=== PATIENT | male | born 1970 | race Caucasian/White ===

== ENCOUNTER 2017-09-07 10:57 | Emergency (ER) | payer BC, OTHER ==
[~2017-09-07 10:57] MED LIST: AUG875 PO; GUAI1CAP92 PO; IBU800 PO; INDO-1 PO; LEVO100T95 PO; LOR5 PO; LOR75 PO; P EP PO
[2017-09-07] MEDS ORDERED: ALLO-119 PO (11:02)
--- NOTE | 2017-09-07 11:04 | ER Report ---
History and Physical Time Seen By MD: 11:04 HPI/ROSALIND CHIEF COMPLAINT: Chest pain HISTORY OF PRESENT ILLNESS: This is a 47-year-old male who presents to the emergency department for chest pain. 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 Patient states that then yesterday he had some dyspnea with some mild anterior chest pain and then today having some dyspnea with left-sided anterior chest discomfort as he describes it, patient states he became a little bit anxious decided to come into the emergency department for further evaluation. Patient states that he does have a family history of heart disease his father has 4 stents however he is relatively healthy, very active. Patient denies any recent travel outside the region no long flights or long car rides other than to [place]. No recent trauma. Did have asthma as a child. No aches or chills, nausea or vomiting, no headaches or rashes. REVIEW OF SYSTEMS: Constitutional: No fever, no chills. Eyes: No discharge. ENT: No sore throat. Cardiovascular: As above. Respiratory: As above. Gastrointestinal: No abdominal pain, no vomiting. Genitourinary: No hematuria. Musculoskeletal: No back pain. Skin: No rashes. Neurological: No headache. Allergies: Coded Allergies: No Known Drug Allergies (Unverified , 01/03/13) Home Meds Active Scripts Albuterol Sulfate (VENTOLIN HFA) 18 Gm Inh, 2 PUFF INH Q4-6H Y for SHORTNESS OF BREATH, #1 INH Prov:EMILE WILKINS Michael [employer] 09/07/17 Reported Medications Allopurinol (ZYLOPRIM) 300 Mg Tablet, 300 MG PO QDAY, TAB 09/07/17 Indomethacin (INDOMETHACIN) Unknown Strength Capsule, PO, CAPSULE 11/30/14 Levothyroxine Sodium (Synthroid) 100 Mcg Tablet, 125 MCG PO QDAY, 0 Refills 01/25/10 Past Medical/Surgical History The patient has a past medical and surgical history of childhood asthma, gout, removal of cyst. Reviewed Nurses Notes: Yes Hx Smoking: No Smoking Status: Never Smoker Hx Substance Use Disorder: No Hx Alcohol Use: Yes (OCC) Constitutional Vital Sign - Last 24 Hours 09/07/17 09/07/17 09/07/17 09/07/17 11:02 11:02 11:27 11:30 Temp 98.2 Pulse 63 67 Resp 14 23 B/P (MAP) 142/82 142/82 (102) 130/76 (94) Pulse Ox 95 93 O2 Delivery Room Air 09/07/17 09/07/17 09/07/17 09/07/17 11:42 11:57 12:00 12:12 Pulse 72 72 61 Resp 14 22 13 B/P (MAP) 133/80 (97) Pulse Ox 93 95 94 09/07/17 09/07/17 09/07/17 09/07/17 12:27 12:30 12:42 12:47 Pulse 55 58 58 Resp 14 21 B/P (MAP) 137/94 (108) Pulse Ox 93 93 09/07/17 09/07/17 09/07/17 09/07/17 13:00 13:02 13:17 13:30 Pulse 55 47 Resp 13 20 B/P (MAP) 116/87 (97) 110/83 (92) Pulse Ox 94 94 09/07/17 09/07/17 09/07/17 13:32 13:37 13:42 Pulse 50 49 Resp 24 21 16 B/P (MAP) 118/96 (103) Pulse Ox 96 94 93 Physical Exam General Appearance: The patient is alert, has no immediate need for airway protection and no signs of toxicity. Eyes: Pupils equal and round no pallor or injection. ENT, Mouth: Mucous membranes are moist. Respiratory: There are no retractions, lungs are clear to auscultation. Cardiovascular: Regular rate and rhythm, no murmurs, clicks or rubs. Gastrointestinal: Abdomen is soft and non tender, no masses, bowel sounds normal. Neurological: Alert and oriented 4. Moving all extremities. Following all commands. No focal neuro deficits. Skin: Warm and dry, no rashes. Musculoskeletal: Neck is supple non tender. Extremities are nontender, nonswollen and have full range of motion. DIFFERENTIAL DIAGNOSIS: After history and physical exam differential diagnosis was considered for shortness of breath including but not limited to pulmonary infectious process, COPD, asthma, myocardial infarction, pulmonary embolus and congestive heart failure. Medical Decision Making Data Points Result Diagram: 09/07/17 1108 09/07/17 1108 Laboratory Hematology Test 09/07/17 11:08 09/07/17 13:06 Red Blood Count 5.25 M/uL (4.00-5.60) Mean Corpuscular Volume 86.5 fL (80.0-96.0) Mean Corpuscular Hemoglobin 30.1 pg (26.0-33.0) Mean Corpuscular Hemoglobin Concent 34.9 g/dL (32.0-36.0) Red Cell Distribution Width 13.6 % (11.5-14.5) Mean Platelet Volume 8.2 fL (7.2-11.1) Neutrophils (%) (Auto) 51.4 % (39.4-72.5) Lymphocytes (%) (Auto) 40.8 % (17.6-49.6) Monocytes (%) (Auto) 4.7 % (4.1-12.4) Eosinophils (%) (Auto) 2.4 % (0.4-6.7) Basophils (%) (Auto) 0.7 % (0.3-1.4) Nucleated RBC Relative Count (auto) 0.1 /100WBC Neutrophils # (Auto) 3.1 K/uL (2.0-7.4) Lymphocytes # (Auto) 2.4 K/uL (1.3-3.6) Monocytes # (Auto) 0.3 K/uL (0.3-1.0) Eosinophils # (Auto) 0.1 K/uL (0.0-0.5) Basophils # (Auto) 0.0 K/uL (0.0-0.1) Nucleated RBC Absolute Count (auto) 0.01 K/uL D-Dimer Quantitative (PE/DVT) < 0.27 ug/ml (0-0.50) Sodium Level 139 mmol/L (137-145) Potassium Level 3.6 mmol/L (3.5-5.0) Chloride Level 101 mmol/L (98-107) Carbon Dioxide Level 26 mmol/L (22-30) Blood Urea Nitrogen 13 mg/dl (9-21) Creatinine 1.00 mg/dl (0.66-1.25) Glomerular Filtration Rate Calc > 60.0 Random Glucose 112 mg/dl (75-110) Calcium Level 9.7 mg/dl (8.4-10.2) Total Bilirubin 0.6 mg/dl (0.2-1.3) Aspartate Amino Transf (AST/SGOT) 29 U/L (0-35) Alanine Aminotransferase (ALT/SGPT) 36 U/L (0-56) Alkaline Phosphatase 74 U/L (0-126) Total Protein 7.6 gm/dl (6.3-8.2) Albumin 4.2 g/dl (3.5-5.0) Troponin I < 0.012 ng/ml Chemistry Test 09/07/17 11:08 09/07/17 13:06 White Blood Count 6.0 k/uL (4.5-11.0) Red Blood Count 5.25 M/uL (4.00-5.60) Hemoglobin 15.8 g/dL (14.0-18.0) Hematocrit 45.4 % (42.0-52.0) Mean Corpuscular Volume 86.5 fL (80.0-96.0) Mean Corpuscular Hemoglobin 30.1 pg (26.0-33.0) Mean Corpuscular Hemoglobin Concent 34.9 g/dL (32.0-36.0) Red Cell Distribution Width 13.6 % (11.5-14.5) Platelet Count 138 K/uL (150-450) Mean Platelet Volume 8.2 fL (7.2-11.1) Neutrophils (%) (Auto) 51.4 % (39.4-72.5) Lymphocytes (%) (Auto) 40.8 % (17.6-49.6) Monocytes (%) (Auto) 4.7 % (4.1-12.4) Eosinophils (%) (Auto) 2.4 % (0.4-6.7) Basophils (%) (Auto) 0.7 % (0.3-1.4) Nucleated RBC Relative Count (auto) 0.1 /100WBC Neutrophils # (Auto) 3.1 K/uL (2.0-7.4) Lymphocytes # (Auto) 2.4 K/uL (1.3-3.6) Monocytes # (Auto) 0.3 K/uL (0.3-1.0) Eosinophils # (Auto) 0.1 K/uL (0.0-0.5) Basophils # (Auto) 0.0 K/uL (0.0-0.1) Nucleated RBC Absolute Count (auto) 0.01 K/uL D-Dimer Quantitative (PE/DVT) < 0.27 ug/ml (0-0.50) Glomerular Filtration Rate Calc > 60.0 Calcium Level 9.7 mg/dl (8.4-10.2) Total Bilirubin 0.6 mg/dl (0.2-1.3) Aspartate Amino Transf (AST/SGOT) 29 U/L (0-35) Alanine Aminotransferase (ALT/SGPT) 36 U/L (0-56) Alkaline Phosphatase 74 U/L (0-126) Total Protein 7.6 gm/dl (6.3-8.2) Albumin 4.2 g/dl (3.5-5.0) Troponin I < 0.012 ng/ml Coagulation Test 09/07/17 11:08 D-Dimer Quantitative (PE/DVT) < 0.27 ug/ml EKG/Imaging EKG Interpretation 12 lead EKG: Time of EKG 1113. Rhythm: Normal sinus rhythm, 61 bpm. [place]: normal QRS: normal ST segments: No ST depression or elevation identified. Imaging Location: [facility] - [place] Patient: Solo Cook : 1970 Visit/Account:[id number] Date of Sevice: 09/07/2017 Technique: CHEST PA AND LAT HISTORY: chest pain COMPARISON: None available Findings: The lungs are clear. No pleural effusion or pneumothorax. The cardiomediastinal silhouette is normal. Impression: 1. No acute cardiopulmonary process. Report Dictated By: Lj Finley DO at 09/07/2017 11:37 AM Report E-Signed By: Lj Finley DO at 09/07/2017 11:45 AM WSN:[id number] ED Course/Re-evaluation Clinical Indication for ER IV: IV Access ED Course The patient was admitted to room. A history and physical were obtained. Differential diagnoses were considered. IV was started. A CBC, CMP, troponin were obtained. 324 mg aspirin given. Two-view chest x-ray. Lab studies unremarkable. Negative troponin 2. Negative chest x-ray. Normal EKG. While in the emergency department the patient states he was feeling better, had no other complaints. I did review these results with the patient and did instruct him to home with his primary care provider and consider a pulmonary function tests. I did send the patient home with a prescription for MDI albuterol. The patient had no other questions or concerns at this time and was discharged home. Patient was encouraged to return to emergency department for any other concerns or worsening symptoms. Decision to Disposition Date: September 07, 2017 Decision to Disposition Time: 13:41 Depart Departure Latest Vital Signs Vital Signs Date Time Temp Pulse Resp B/P (MAP) Pulse Ox O2 Delivery O2 Flow Rate FiO2 09/07/17 13:42 16 118/96 (103) 93 09/07/17 13:37 49 09/07/17 11:02 98.2 Room Air Impression: Primary Impression: Dyspnea Additional Impression: Chest pain Condition: Improved Disposition: HOME OR SELF-CARE Referrals: JANEY MONAHAN DO (PCP) [place] Albuterol Sulfate (VENTOLIN HFA) 18 Gm Inh 2 PUFF INH Q4-6H Y for SHORTNESS OF BREATH, #1 INH Prov: EMILE WILKINS 09/07/17 Patient Instructions: Chest Pain (ED), Dyspnea (ED) Additional Instructions: All of your studies today are normal no concern at this time for cardiac involvement. Drink plenty of fluids. Get plenty of rest. Try the albuterol inhaler as needed. Follow up with Dr. Meyers's office and consider a pulmonary function test. Keep your appointment with the lung splitter. You can try [id number] allergy medication such as Claritin or Zyrtec. Return to the emergency department for any other concerns or worsening symptoms. Problem Qualifiers Primary Impression: Dyspnea Dyspnea type: unspecified Qualified Codes: R06.00 - Dyspnea, unspecified Additional Impression: Chest pain Chest pain type: chest pain on breathing Qualified Codes: R07.1 - Chest pain on breathing EMILE WILKINS-JOHNIE September 07, 2017 11:04
[2017-09-07] MEDS ORDERED: ASPIRIN 81 MG CHEW PO ONE (11:15)
--- NOTE | 2017-09-07 11:18 | EKG ---
FACILITY: [facility] PATIENT NAME: HAWA BUTTERFIELD : [id number] MR: [id number] V: [id number] EXAM DATE: ORDERING PHYSICIAN: EMILE WILKINS TECHNOLOGIST: [place] Holguin Reason : SOB Blood Pressure : / mmHG Vent. Rate : 061 BPM Atrial Rate : 061 BPM P-R Int : 200 ms QRS Dur : 088 ms QT Int : 418 ms P-R-T Axes : 043 000 027 degrees QTc Int : 420 ms Normal sinus rhythm No ST-T abnormalities Unchanged from previous Confirmed by CHRISTINE HUDSON ([id number]) on 09/07/2017 6:37:20 PM Referred By: Confirmed By:CHRISTINE HUDSON
[2017-09-07 11:31] LABS: PLATELET COUNT, AUTOMATED 138 K/uL (150-450)
--- NOTE | 2017-09-07 11:49 | RADIOLOGY IMAGING REPORT ---
FACILITY: [facility] PATIENT NAME: Solo Cook : 1970 MR: [id number] V: [id number] EXAM DATE: ORDERING PHYSICIAN: EMILE WILKINS TECHNOLOGIST: Location: [facility] - [place] Patient: Solo Cook : 1970 Visit/Account:[id number] Date of Sevice: 09/07/2017 Technique: CHEST PA AND LAT HISTORY: chest pain COMPARISON: None available Findings: The lungs are clear. No pleural effusion or pneumothorax. The cardiomediastinal silhouett e is normal. Impression: 1. No acute cardiopulmonary process. Report Dictated By: Lj Finley DO at 09/07/2017 11:37 AM Report E-Signed By: Lj Finley DO at 09/07/2017 11:45 AM WSN:[id number]
[2017-09-07] MEDS ORDERED: ALB18R INH (12:32)
[2017-09-07 13:42] VITALS: BP 118/96
== END 2017-09-07 13:47 | disposition home or self-care (01) ==
LOC: ER 11:03
DX: R07.1 Chest pain on breathing (principal); R06.00 Dyspnea, unspecified
CPT/HCPCS: 36415; 71046; 82040; 82247; 82310; 82374; 82435; 82565; 82947; 84075; 84132; 84155; 84295; 84450; 84460; 84484; 84520; 85025; 85379; 93005; 99284

== ENCOUNTER → 2018-01-28 | Outpatient (REF) | payer OTHER ==
[~2018-01-28] MED LIST changes: +ALB18R INH; +ALLO-119 PO; -INDO-1 PO; +INDO-21 PO
== END ==
LOC: ZZSENDIN 12:00
PROVIDERS: ATTEND Orthopaedic Surgery Hand Surgery
DX: D17.21 Benign lipomatous neoplasm of skin and subcutaneous tissue of right arm (principal); M11.2 Other chondrocalcinosis
CPT/HCPCS: 88304